=== PATIENT | male | born 1985 | race Caucasian/White ===

== ENCOUNTER 2018-11-25 13:51 | Emergency (ER) | payer OTHER ==
[~2018-11-25] VITALS: Ht 182.9 cm; Wt 97.5 kg
[~2018-11-25 13:51] MED LIST: IBUPROFEN 800800 MG PO; PERCOCET 5-3251 EACH PO; ROBAXIN500 MG PO
[2018-11-25] MEDS ORDERED: ANXIETY PO (14:10)
[2018-11-25] MEDS ORDERED: NORCO 5-325 TA1 EACH PO (16:24)
[2018-11-25] MEDS ORDERED: ROBAXIN 750 MG750 M1 PO (16:24)
[2018-11-25 16:42] VITALS: BP 145/73
== END 2018-11-25 16:43 | disposition home or self-care (01) ==
LOC: M.ERS 13:51
DX: S39.012A Strain of muscle, fascia and tendon of lower back, initial encounter (principal); S32.029A Unspecified fracture of second lumbar vertebra, initial encounter for closed fracture; M54.9 Dorsalgia, unspecified; G89.29 Other chronic pain; F17.200 Nicotine dependence, unspecified, uncomplicated; V43.02XA Car driver injured in collision with other type car in nontraffic accident, initial encounter; Y93.89 Activity, other specified; Y92.89 Other specified places as the place of occurrence of the external cause; Y99.8 Other external cause status